=== PATIENT | male | born 1990 | race African-American/Black ===

== ENCOUNTER 2016-06-16 03:26 | Emergency (ER) | payer OTHER ==
[~2016-06-16] VITALS: Ht 175.3 cm; Wt 74.9 kg
[2016-06-16 03:28] VITALS: TEMP 36.5; O2SAT 94; Ht 175.3 cm; Wt 74.9 kg
--- NOTE | 2016-06-16 03:33 | EMERGENCY ROOM VISIT NOTE ---
History Report prepared by [place]: Jayesh Moore Under the Supervision of: Dr. Aba Monson M.D. First contact with patient: 03:29 Chief Complaint: ALCOHOL OVERDOSE Stated Complaint: ALCOHOL OVERDOSE History of Present Illness This HPI is limited due to the alcohol intoxication of the patient. The patient is a 25 year old male who presents to the Emergency Room via EMS for alcohol intoxication. Per EMS the patient was found sleeping in his vehicle. The patient admits to consuming alcohol. He denies getting into any fights or any other injuries. Source of History: EMS, nursing staff History Limited By: intoxication Review of Systems HPI limited due to alcohol intoxication. Social History Drug Use: none Marital Status: single Housing Status: lives with roommate Occupation Status: [employer] student Current/Historical Medications No Active Prescriptions or Reported Meds Allergies Coded Allergies: No Known Allergies (Unverified , 06/16/16) Physical Exam Vital Signs Date Time Temp Pulse Resp B/P Pulse Ox O2 Delivery O2 Flow Rate FiO2 06/16/16 05:59 75 18 123/77 99 Room Air 06/16/16 05:07 71 16 145/44 97 Room Air 06/16/16 03:41 62 06/16/16 03:28 36.5 76 20 117/74 94 Room Air 06/16/16 03:28 94 Room Air Physical Exam GENERAL: Patient is Moderately intoxicated. Smells of alcohol. HEAD: No evidence of Trauma. AT/NC EYES: injected conjunctiva. Normal EOM. Pupils equal/reactive. ENT: Mucous membranes moist, no nasal congestion, . NECK: No step-offs, no adenopathy, no meningismus, trachea is midline. LUNGS: No dyspnea. Clear to auscultation and equal bilaterally. No wheeze, no rhonchi. HEART: Regular rate and rhythm. No murmurs, rubs, gallops appreciated. ABDOMEN: Soft, nontender, bowel sounds positive, no masses appreciated, no peritonitis. BACK: No midline tenderness, no CVA tenderness EXTREMITIES: Normal motion all extremities, no cyanosis, no edema. NEUROLOGIC: Intoxicated. Alert, oriented. No acute motor or sensory deficits, no focal weakness, cranial nerves grossly intact. SKIN: No rash, no jaundice, no diaphoresis. Medical Decision & Procedures Laboratory Results 06/16/16 04:03 Test 06/16/16 04:03 Anion Gap 11.0 mmol/L (3-11) Est Creatinine Clear Calc Drug Dose 95.8 ml/min Estimated GFR () 98.2 Estimated GFR (Non- 84.7 BUN/Creatinine Ratio 7.1 (10-20) Calcium Level 8.3 mg/dl (8.5-10.1) Ethyl Alcohol mg/dL 220.0 mg/dl (0-3) Laboratory results as reviewed by me. ED Course 0331: The patient was evaluated in room A9. A complete history and physical exam was performed. 0559: I checked on the patient at this time, he now has multiple friends in the room with him. They are willing to take him home back to his dorm. The patient will be discharged at this time. Medical Decision Differential: Alcohol Intoxication, Drug Intoxication, Electrolyte Abnormality, Trauma, Intracranial Event, Toxicological, Excited Delirium, Serotonin Syndrome , amongst other pathologies entertained. 25 yr old intoxicated male brought in by EMS after being found sleeping in his care. Patient with no evidence nor history for trauma. Protecting airway and breathing comfortably throughout ED stay. EtOH positive. Monitored and discharged when awake, alert, oriented and denies any complaints with several of his friends. Impression Primary Impression: Alcohol intoxication Scribe Attestation The scribe's documentation has been prepared under my direction and personally reviewed by me in its entirety. I confirm that the note above accurately reflects all work, treatment, procedures, and medical decision making performed by me. Departure Information Dispostion Home / Self-Care Prescriptions No Active Prescriptions or Reported Meds Patient Instructions Alcohol Intoxication - [facility], My [facility] Health Problem Qualifiers Primary Impression: Alcohol intoxication Complication of substance-induced condition: uncomplicated Qualified Codes: F10.120 - Alcohol abuse with intoxication, uncomplicated
[2016-06-16 04:41] LABS: BUN/CREATININE RATIO 7.1 (10-20); CALCIUM 8.3 mg/dl (8.5-10.1); CREATININE 1.2 mg/dl (0.60-1.40); POTASSIUM 3.8 mmol/L (3.5-5.1)
[2016-06-16 05:59] VITALS: BP 123/77; PULSE 75; O2SAT 99
== END 2016-06-16 06:20 | disposition home or self-care (01) ==
LOC: C.EDA 03:28
DX: F10.129 Alcohol abuse with intoxication, unspecified (principal); Y90.7 Blood alcohol level of 200-239 mg/100 ml